=== PATIENT | female | born 1990 ===

== ENCOUNTER 2022-05-20 19:01 | Emergency (ER) | payer OTHER ==
[~2022-05-20] VITALS: Ht 121.9 cm; Wt 56.7 kg
[~2022-05-20 19:01] MED LIST: CEFADROXIL500 MG PO; Colace 100MG PO; DULCOLAX STOOL100 MG PO; KETO10TA2 PO; NORFLEX100MG PO; OXYC1TAB9 PO; PRENATE ADVANCE PO
[2022-05-21] MEDS ORDERED: METRONIDAZOLE500 MG PO (05:03)
[2022-05-21] MEDS ORDERED: LEVSIN/SL0.125 MG SL (05:03)
[2022-05-21] MEDS ORDERED: INTESTINEX680 M1 PO (05:03)
[2022-05-21] MEDS ORDERED: PEPCID AC20 MG PO (05:03)
== END 2022-05-21 04:17 | disposition home or self-care (01) ==
LOC: ER 19:01
DX: R10.84 Generalized abdominal pain (principal); R19.7 Diarrhea, unspecified; Z91.013 Allergy to seafood; Z88.6 Allergy status to analgesic agent